=== PATIENT | male | born 1955 | race Caucasian/White ===

== ENCOUNTER → 2020-11-17 | Outpatient (CLI) | payer MEDICARE ==
[~2020-11-17] MED LIST: CIPR500 PO; CYCL10 PO; IBUP600 PO; IBUP800 PO; OXYACE5T PO; OXYACE7.5T PO; PROM25 PO; RXOXYACE PO; TAMS.4ER PO
== END | disposition home or self-care (01) ==
LOC: LAB 08:14 → LAB SHORT 08:14
DX: K21.9 Gastro-esophageal reflux disease without esophagitis (principal)
CPT/HCPCS: 87338

== ENCOUNTER 2021-07-17 13:33 | Emergency (ER) | payer MEDICARE ==
[~2021-07-17] VITALS: Ht 177.8 cm; Wt 93.4 kg
[2021-07-17] MEDS ORDERED: CEFUROXIME SOD1.5 GM (13:50)
[2021-07-17 16:07] LABS: SARS-Cov-2 (COVID-19) PCR, MMC NEGATIVE (NEGATIVE)
[2021-07-17] MEDS ORDERED: PSEU120ER PO (16:31)
== END 2021-07-17 16:41 | disposition home or self-care (01) ==
LOC: ER 13:33
PROVIDERS: Physician Assistant
DX: J01.90 Acute sinusitis, unspecified (principal); Z20.822 Contact with and (suspected) exposure to COVID-19; Z88.2 Allergy status to sulfonamides; Z91.040 Latex allergy status
CPT/HCPCS: 71045; 99283-25; U0004

== ENCOUNTER 2021-07-19 05:32 | Emergency (ER) | payer MEDICARE ==
[~2021-07-19] VITALS: Ht 177.8 cm; Wt 90.7 kg
[~2021-07-19 05:32] MED LIST changes: +CEFUROXIME SOD1.5 GM; +PSEU120ER PO
[2021-07-19] MEDS ORDERED: PSEUDOEPHEDRIN PO (05:43)
[2021-07-19] MEDS ORDERED: ACYCLOVIR400 MG PO (05:43)
[2021-07-19] MEDS ORDERED: PRED20 PO (05:43)
== END 2021-07-19 07:09 | disposition home or self-care (01) ==
LOC: ER 05:32
DX: J32.9 Chronic sinusitis, unspecified (principal); I10 Essential (primary) hypertension; Z91.018 Allergy to other foods; Z88.2 Allergy status to sulfonamides; Z79.899 Other long term (current) drug therapy
CPT/HCPCS: 93005; 93010; 96374; 96375; 99284-25; J1100; J1885

== ENCOUNTER → 2021-08-09 | Outpatient (CLI) | payer MEDICARE ==
[~2021-08-09] MED LIST changes: +ACYCLOVIR400 MG PO; +PRED20 PO; +PSEUDOEPHEDRIN PO
[2021-08-09 09:40] LABS: BASOPHILS ABSOLUTE AUTO 0.02 K/mm3 (0.00-0.23); BASOPHILS PERCENT AUTO 1 % (0-2); EOSINOPHILS ABSOLUTE AUTO 0.11 K/mm3 (0.00-0.68); EOSINOPHILS PERCENT AUTO 3 % (0-6); Hematocrit 45.4 % (37.0-53.0); Hemoglobin 15.6 g/dL (13.5-17.5); IMMATURE GRAN ABSOLUTE AUTO 0.03 K/mm3 (0.00-0.10); IMMATURE GRAN PERCENT AUTO 1 % (0-1); LYMPHOCYTES ABSOLUTE AUTO 1.36 K/mm3 (0.84-5.20); LYMPHOCYTES PERCENT AUTO 33 % (21-46); MONOCYTES ABSOLUTE AUTO 0.38 K/mm3 (0.16-1.47); MONOCYTES PERCENT AUTO 9 % (4-13); Mean Corpuscular HGB 32.5 pg (26.0-34.0); Mean Corpuscular HGB Conc 34.4 g/dL (31.5-36.5); Mean Corpuscular Volume 95 fL (80-100); Mean Platelet Volume 11.1 fL (9.1-12.4); NEUTROPHILS PERCENT AUTO 54 % (41-73); Platelet Count 174 K/mm3 (150-400); RDW Coefficient Variation 12.9 % (11.7-14.2); RDW Standard Deviation 44.8 fL (35.1-46.3)
[2021-08-09 10:04] LABS: Alanine Aminotransfer (ALT/SGP 31 U/L (12-78); Albumin, Blood 3.8 g/dL (3.4-5.0); Albumin/Globulin Ratio 1.2 (0.8-1.8); Alk Phos 64 U/L (40-126); Anion Gap 10 mmol/L (6-16); Aspartate Aminotrans (AST/SGOT 17 U/L (12-37); Bilirubin, Total 0.5 mg/dL (0.1-1.0); Blood Urea Nitrogen 21 mg/dL (8-24); Bun/Creatinine Ratio 18.8 (12.0-20.0); CO2, Blood 27 mmol/L (21-32); Chloride, Blood 105 mmol/L (98-108); Creatinine, Blood 1.12 mg/dL (0.60-1.20); Globulin, Blood 3.3 g/dL (2.2-4.0); Glomerular Filtration Rate >60 (60-); Glucose, Blood 121 mg/dL (70-99); Potassium, Blood 4.5 mmol/L (3.5-5.5); Sodium, Blood 142 mmol/L (136-145); Thyroid Stimulating Hormone 1.503 uIU/mL (0.360-4.800); Total Protein, Blood 7.1 g/dL (6.4-8.2)
== END ==
LOC: LAB SHORT 09:27 → LAB 09:27
PROVIDERS: Physician Assistant
DX: R19.7 Diarrhea, unspecified (principal); R53.83 Other fatigue
CPT/HCPCS: 80053; 83690; 84443; 85025

== ENCOUNTER 2023-05-07 06:11 | Day surgery (SDC) | payer OTHER, MEDICARE ==
[~2023-05-07] VITALS: Ht 177.8 cm; Wt 94.4 kg
[2023-05-07] MEDS ORDERED: ALEVE220 MG PO (06:58)
--- NOTE | 2023-05-07 07:58 | NUR ---
05/07/23 0758 Hung Maher 1 MG EPI ADDED TO THE FIRST BAG OF LR PER ORDER, FOR IRRIGATION AT OPSITE. ROPIVACAINE 0.5% 20ML MIXED & VERIFIED W/ EPI 0.1 (1MG/ML) PER ORDER TO MAKE ROPIVACAINE 0.5% 1:200,000 FOR INJECTION AT OPSITE BY DR MOORE. 10 ML INJECTED.
--- NOTE | 2023-05-07 09:29 | NUR ---
05/07/23 0929 AMA PATRICK PT STATES PAIN 10. WILL GIVE PT PO AND IV MEDICATIONS.
[2023-05-07 09:52] VITALS: BP 173/103
== END 2023-05-07 10:20 | disposition home or self-care (01) ==
LOC: ORSCSDS 06:11
PROVIDERS: Orthopaedic Surgery
PROC: 0SBC4ZZ Excision of Right Knee Joint, Percutaneous Endoscopic Approach (ICD-10-PCS; principal; 2023-05-07 07:30)
DX: M23.203 Derangement of unspecified medial meniscus due to old tear or injury, right knee (principal); M23.200 Derangement of unspecified lateral meniscus due to old tear or injury, right knee; W00.0XXA Fall on same level due to ice and snow, initial encounter; I10 Essential (primary) hypertension; Z79.899 Other long term (current) drug therapy
CPT/HCPCS: A9270; J0171; J0690; J1100; J2250; J2405; J2704; J2795; J3010; J7120

== ENCOUNTER 2023-06-09 06:33 | Emergency (ER) | payer MEDICARE ==
[~2023-06-09] VITALS: Ht 177.8 cm; Wt 88.5 kg
[~2023-06-09 06:33] MED LIST changes: +ALEVE220 MG PO
[2023-06-09 07:07] LABS: BASOPHILS ABSOLUTE AUTO 0.03 K/mm3 (0.00-0.23); BASOPHILS PERCENT AUTO 0 % (0-2); EOSINOPHILS ABSOLUTE AUTO 0.09 K/mm3 (0.00-0.68); EOSINOPHILS PERCENT AUTO 1 % (0-6); Hematocrit 41.7 % (37.0-53.0); Hemoglobin 14.6 g/dL (13.5-17.5); IMMATURE GRAN ABSOLUTE AUTO 0.03 K/mm3 (0.00-0.10); IMMATURE GRAN PERCENT AUTO 0 % (0-1); LYMPHOCYTES ABSOLUTE AUTO 1.11 K/mm3 (0.84-5.20); LYMPHOCYTES PERCENT AUTO 14 % (21-46); MONOCYTES ABSOLUTE AUTO 0.45 K/mm3 (0.16-1.47); MONOCYTES PERCENT AUTO 6 % (4-13); Mean Corpuscular HGB 32.1 pg (26.0-34.0); Mean Corpuscular Volume 92 fL (80-100); Mean Platelet Volume 11.2 fL (9.1-12.4); NEUTROPHILS ABSOLUTE AUTO 6.52 K/mm3 (1.96-9.15); NEUTROPHILS PERCENT AUTO 79 % (41-73); Platelet Count 155 K/mm3 (150-400); RDW Standard Deviation 40.2 fL (35.1-46.3); Red Blood Cell Count 4.55 M/mm3 (4.30-5.90); White Blood Cell Count 8.23 K/mm3 (4.00-11.30)
[2023-06-09 07:22] LABS: Albumin, Blood 3.8 g/dL (3.4-5.0); Albumin/Globulin Ratio 1.3 (0.8-1.8); Bilirubin, Total 0.4 mg/dL (0.1-1.0); Bun/Creatinine Ratio 16.7 (12.0-20.0); Creatinine, Blood 1.02 mg/dL (0.60-1.20); Potassium, Blood 4.3 mmol/L (3.5-5.5); Total Protein, Blood 6.8 g/dL (6.4-8.2)
[2023-06-09 08:36] LABS: Source, Urine Clean Catch
[2023-06-09 08:38] LABS: Bilirubin, Urine Neg (Neg); Blood, Urine 5+ (Neg); Glucose Qualitative, Urine Neg (Neg); Ketones, Urine Neg (Neg); Leukocyte Esterase, Urine Neg (Neg); Nitrite, Urine Neg (Neg); Protein, Urine Neg (Neg); Specific Gravity, Urine 1.015 (1.003-1.022); Urobilinogen, Urine NORM (Normal); pH, Urine 6.5 (5.0-8.0)
[2023-06-09 08:59] LABS: Appearance, Urine Hazy (Clear); Bacteria Not Seen /hpf; Color, Urine Yellow (P-Yellow); Squamous Epithelial Cells Few /hpf (Few); White Blood Cells, Urine Not Seen /hpf (0-5)
[2023-06-09] MEDS ORDERED: Percocet 5-3251 EACH PO (09:38)
[2023-06-09] MEDS ORDERED: DOC250 PO (09:38)
[2023-06-09] MEDS ORDERED: TAMS.4ER PO (09:38)
[2023-06-09] MEDS ORDERED: ONDA4ODT MM (09:38)
[2023-06-09 10:00] VITALS: BP 154/98
== END 2023-06-09 10:10 | disposition home or self-care (01) ==
LOC: ER 06:33
PROVIDERS: Emergency Medicine
DX: N13.2 Hydronephrosis with renal and ureteral calculous obstruction (principal); Z88.2 Allergy status to sulfonamides; Z91.018 Allergy to other foods; Z79.899 Other long term (current) drug therapy; I10 Essential (primary) hypertension
CPT/HCPCS: 74177; 80053; 81001; 83605; 83690; 85025; 96361; 96374; 96375; 96376; 99284-25; A9270; C9113; J1170; J1885; J2270; J2405; J3010; J7030; Q9967

== ENCOUNTER 2025-01-02 19:19 | Emergency (ER) | payer OTHER ==
[~2025-01-02] VITALS: Ht 177.8 cm; Wt 90.7 kg
[~2025-01-02 19:19] MED LIST changes: +DOC250 PO; +ONDA4ODT MM; +Percocet 5-3251 EACH PO
[2025-01-02] MEDS ORDERED: NS 1,000 ML IV SCH (19:25)
[2025-01-02] MEDS ORDERED: Morphine Sulfate 4 MG/1 ML Injection IV ONE (19:30)
[2025-01-02] MEDS ORDERED: Ondansetron HCl 2 MG / ML 2ML Vial IV ONE (19:30)
[2025-01-02 19:55] LABS: BASOPHILS ABSOLUTE AUTO 0.03 K/mm3 (0.00-0.23); BASOPHILS PERCENT AUTO 1 % (0-2); EOSINOPHILS ABSOLUTE AUTO 0.09 K/mm3 (0.00-0.68); EOSINOPHILS PERCENT AUTO 2 % (0-6); Hematocrit 41.5 % (37.0-53.0); Hemoglobin 14.6 g/dL (13.5-17.5); IMMATURE GRAN ABSOLUTE AUTO 0.02 K/mm3 (0.00-0.10); IMMATURE GRAN PERCENT AUTO 0 % (0-1); LYMPHOCYTES ABSOLUTE AUTO 2.21 K/mm3 (0.84-5.20); LYMPHOCYTES PERCENT AUTO 36 % (21-46); MONOCYTES ABSOLUTE AUTO 0.59 K/mm3 (0.16-1.47); MONOCYTES PERCENT AUTO 10 % (4-13); Mean Corpuscular HGB 33.5 pg (26.0-34.0); Mean Corpuscular HGB Conc 35.2 g/dL (31.5-36.5); Mean Corpuscular Volume 95 fL (80-100); Mean Platelet Volume 10.3 fL (9.1-12.4); NEUTROPHILS ABSOLUTE AUTO 3.14 K/mm3 (1.96-9.15); NEUTROPHILS PERCENT AUTO 52 % (41-73); Platelet Count 154 K/mm3 (150-400); RDW Coefficient Variation 12.1 % (11.7-14.2); RDW Standard Deviation 42.5 fL (35.1-46.3); Red Blood Cell Count 4.36 M/mm3 (4.30-5.90); White Blood Cell Count 6.08 K/mm3 (4.00-11.30)
[2025-01-02 20:15] LABS: Albumin, Blood 3.7 g/dL (3.4-5.0); Albumin/Globulin Ratio 1.2 (0.8-1.8); Bilirubin, Total 0.5 mg/dL (0.1-1.0); Bun/Creatinine Ratio 18.6 (12.0-20.0); Calcium, Blood 8.6 mg/dL (8.5-10.1); Creatinine, Blood 1.02 mg/dL (0.60-1.20); Magnesium, Blood 2.4 mg/dL (1.6-2.4); Potassium, Blood 4.4 mmol/L (3.5-5.5); Total Protein, Blood 6.7 g/dL (6.4-8.2)
[2025-01-02] MEDS ORDERED: HYDROmorphone HCl/Pf 1MG SYR IV ONE (20:55)
[2025-01-02 21:43] LABS: Source, Urine Clean Catch
[2025-01-02 22:09] LABS: Appearance, Urine Clear (Clear); Bilirubin, Urine Neg (Neg); Blood, Urine 4+ (Neg); Color, Urine Pale Yellow (P-Yellow); Glucose Qualitative, Urine Neg (Neg); Ketones, Urine Neg (Neg); Leukocyte Esterase, Urine Neg (Neg); Nitrite, Urine Neg (Neg); Protein, Urine Neg (Neg); Urobilinogen, Urine NORM (Normal)
[2025-01-02 22:10] LABS: Bacteria Few /hpf; Squamous Epithelial Cells Few /hpf (Few); White Blood Cells, Urine 0-2 /hpf (0-5)
[2025-01-02 22:30] VITALS: BP 145/87
[2025-01-02] MEDS ORDERED: OXYACE7.5T PO (22:37)
[2025-01-02] MEDS ORDERED: ACET500 PO (22:37)
[2025-01-02] MEDS ORDERED: TAMS.4ER PO (22:37)
[2025-01-02] MEDS ORDERED: IBUP600 PO (22:37)
== END 2025-01-02 22:49 | disposition home or self-care (01) ==
LOC: ER 19:19
PROVIDERS: Emergency Medicine
DX: N13.2 Hydronephrosis with renal and ureteral calculous obstruction (principal); I10 Essential (primary) hypertension; Z79.899 Other long term (current) drug therapy; Z91.018 Allergy to other foods; Z88.2 Allergy status to sulfonamides
CPT/HCPCS: 74177; 76870; 80053; 81001; 83690; 83735; 85025; 93005; 93010; 96361; 96374-59; 96375; 99284-25; J1171; J2270; J2405; J7030; Q9967

== ENCOUNTER 2025-05-13 11:00 | Day surgery (SDC) | payer OTHER ==
[~2025-05-13] VITALS: Ht 175.3 cm; Wt 91.5 kg
[2025-05-13] VITALS (12 sets, daily range): BP systolic 102–155; BP diastolic 73–98
[~2025-05-13 11:00] MED LIST changes: +ACET500 PO; +CeFAZolin Sodium 2,000 MG in NS 100 ML IV SCH; +Chlorhexidine Mouth Care 15 ML UDC MT SCH; +GABA300 PO; +Ropivacaine 0.5% HCl/Pf 123.125 MG,EPINEPHrine HCL 0.25 MG,Ketorolac Tromethamine 15 MG... INFIL SCH; +Tranexamic Acid 100 ML IV SCH; +VALS80 PO
[2025-05-13] MEDS ORDERED: BACL10 PO (11:43)
--- NOTE | 2025-05-13 12:35 | NUR ---
PRE OP NOTE PT A&OX4, BREATHING RA, NO COMPLAINTS. Ambulatory in Day Surgery Patient confirms NPO status and agrees with scheduled surgery. Pre-Op teaching done. Pt verbalizes understanding. History, Chart, Medications and Allergies reviewed before start of procedure.
[2025-05-13] MEDS ORDERED: FentaNYL Citrate 50 MCG/ML 2 ML Injection ONE (13:52)
[2025-05-13] MEDS ORDERED: Midazolam HCl 1MG / ML 2ML Vial ONE ×2 (13:52→14:50)
[2025-05-13] MEDS ORDERED: Metoclopramide HCl 5MG / ML 2ML Vial IV PRN (14:15)
[2025-05-13] MEDS ORDERED: Ondansetron HCl 2 MG / ML 2ML Vial IV PRN ×2 (14:15→15:55)
[2025-05-13] MEDS ORDERED: Magnesium Hydroxide Conc 10 ML UDC PO PRN (14:15)
[2025-05-13] MEDS ORDERED: HYDROmorphone HCl/Pf 1MG SYR IV PRN ×3 (14:20→16:00)
[2025-05-13] MEDS ORDERED: Ondansetron HCl 2 MG / ML 2ML Vial ONE (15:19)
[2025-05-13] MEDS ORDERED: Dexamethasone Sod Phos 10 MG/ML 1ML VIAL ONE (15:19)
[2025-05-13] MEDS ORDERED: FentaNYL Citrate 50 MCG/ML 2 ML Injection IV PRN ×2 (15:55→16:00)
[2025-05-13] MEDS ORDERED: Ketorolac Tromethamine 15mg Vial IV SCH (18:00)
--- NOTE | 2025-05-13 18:53 | NUR ---
SUMMARY POSTOP, PT AXO BUT STILL PRESENTS WITH MILD CONFUSION, FAMILY AT BEDSIDE. PTY ATE ALL OF DINNER UPON ARRIVING. VSS CURRENTLY. SPINAL BLOCK EFFECTS REMAIN IN PLACE. UNABLE TO FEEL L LEG DISTAL MID THIGH CURRENTLY, UNABLE TO WIGGLE TOES, CAP REFILL <3SEC. COLD PACK IN PLACE. SCDS IN PLACE. PT CHEERFUL. DENYING PAIN. PLEASANT AND AMINTA ATIVE.
[2025-05-13] MEDS ORDERED: CeFAZolin Sodium 2,000 MG in NS 100 ML IV SCH (22:45)
[2025-05-14 04:51] VITALS: BP 136/85
[2025-05-14 06:01] LABS: BASOPHILS ABSOLUTE AUTO 0.01 K/mm3 (0.00-0.23); BASOPHILS PERCENT AUTO 0 % (0-2); EOSINOPHILS ABSOLUTE AUTO 0.00 K/mm3 (0.00-0.68); EOSINOPHILS PERCENT AUTO 0 % (0-6); Hematocrit 38.7 % (37.0-53.0); Hemoglobin 13.5 g/dL (13.5-17.5); IMMATURE GRAN ABSOLUTE AUTO 0.03 K/mm3 (0.00-0.10); IMMATURE GRAN PERCENT AUTO 0 % (0-1); LYMPHOCYTES ABSOLUTE AUTO 0.54 K/mm3 (0.84-5.20); LYMPHOCYTES PERCENT AUTO 6 % (21-46); MONOCYTES ABSOLUTE AUTO 0.24 K/mm3 (0.16-1.47); MONOCYTES PERCENT AUTO 3 % (4-13); Mean Corpuscular HGB Conc 34.9 g/dL (31.5-36.5); Mean Corpuscular Volume 92 fL (80-100); NEUTROPHILS ABSOLUTE AUTO 8.72 K/mm3 (1.96-9.15); NEUTROPHILS PERCENT AUTO 91 % (41-73); NRBC ABSOLUTE 0.00 K/mm3 (0.00-0.02); NRBC Auto 0.0 /100 WBC (0.0-0.2); Platelet Count 168 K/mm3 (150-400); RDW Coefficient Variation 12.0 % (11.7-14.2); RDW Standard Deviation 40.7 fL (35.1-46.3)
[2025-05-14 06:15] LABS: Magnesium, Blood 2.3 mg/dL (1.6-2.4)
[2025-05-14 06:16] LABS: Anion Gap 8.0 mmol/L (3-11); Blood Urea Nitrogen 17.0 mg/dL (8-24); CO2, Blood 27.0 mmol/L (21-32); Calcium, Blood 8.3 mg/dL (8.5-10.1); Chloride, Blood 103.0 mmol/L (98-108); Creatinine, Blood 0.96 mg/dL (0.60-1.20); Glucose, Blood 165.0 mg/dL (70-99); Potassium, Blood 4.4 mmol/L (3.5-5.5); Sodium, Blood 134.0 mmol/L (136-145)
[2025-05-14 07:06] VITALS: BP 126/90
[2025-05-14 07:08] VITALS: BP 117/81
[2025-05-14] MEDS ORDERED: LINE600 PO (07:58)
[2025-05-14] MEDS ORDERED: ASPI81CH PO (07:58)
[2025-05-14] MEDS ORDERED: OXAYDO5 M1 PO (07:59)
[2025-05-14] MEDS ORDERED: ONDA4ODT MM (08:00)
--- NOTE | 2025-05-14 10:26 | NUR ---
DC INSTRUCT REVIEWED. STATED UNDERSTANDING. AWAITING RIDE.
== END 2025-05-14 11:20 | disposition home or self-care (01) ==
LOC: ORSCMMR 11:00 → ORD 14:00 → ORSCMMR 14:00 → SURS 17:39 → ORSCMMR 05-14 11:20
PROVIDERS: Orthopaedic Surgery
PROC: 0SRD0J9 Replacement of Left Knee Joint with Synthetic Substitute, Cemented, Open Approach (ICD-10-PCS; principal; 2025-05-13 14:30)
DX: M17.12 Unilateral primary osteoarthritis, left knee (principal); I10 Essential (primary) hypertension; Z79.899 Other long term (current) drug therapy
CPT/HCPCS: 36415; 73560-LT; 80048; 83735; 85025; 97110; 97116; 97162; 97530; A9270; C1713; C1776; J0165; J0690; J0735; J1100; J1171; J1885; J2250; J2405; J2704; J2795; J3010; J3373; J7050; J7120